=== PATIENT | male | born 1990 | race African-American/Black ===

== ENCOUNTER 2018-12-07 12:00 | Emergency (ER) | payer OTHER ==
[~2018-12-07] VITALS: Ht 175.3 cm; Wt 72.6 kg
[2018-12-07 12:22] VITALS: BP 105/69
--- NOTE | 2018-12-07 12:52 | RAD ---
Two-view chest dated 12/07/2018. No comparison available. Clinical data indication: Pain after injury. FINDINGS: PA and lateral views obtained. Heart and mediastinal contours within normal limits. Lungs are clear without focal consolidation. Vascular interstitium within normal limits. No pleural effusion or pneumothorax. IMPRESSION: No acute radiographic abnormality. Electronically signed by: Adal Reardon MD (12/07/2018 12:49 PM) [email or web address]
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
[2018-12-07] MEDS ORDERED: ONDANSETRON ODT 4 MG TAB.RAPDIS. PO ONE (13:30)
[2018-12-07] MEDS ORDERED: ONDA4TAB7 PO (13:38)
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
== END 2018-12-07 13:48 | disposition home or self-care (01) ==
LOC: ER 12:00
DX: S06.0X0A Concussion without loss of consciousness, initial encounter (principal); S20.211A Contusion of right front wall of thorax, initial encounter; S80.02XA Contusion of left knee, initial encounter; S80.01XA Contusion of right knee, initial encounter; F17.200 Nicotine dependence, unspecified, uncomplicated; Z98.890 Other specified postprocedural states; Y08.89XA Assault by other specified means, initial encounter; Y93.89 Activity, other specified; Y92.89 Other specified places as the place of occurrence of the external cause; Y99.8 Other external cause status
CPT/HCPCS: 70450; 71046; 99284; Q0162

== ENCOUNTER 2019-04-25 20:55 | Emergency (ER) | payer SELFPAY ==
[~2019-04-25] VITALS: Ht 175.3 cm; Wt 74.8 kg
[~2019-04-25 20:55] MED LIST: ONDA4TAB7 PO
[2019-04-25 21:22] VITALS: BP 123/73
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
[2019-04-26] MEDS ORDERED: HYDR-3164 PO (00:04)
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
== END 2019-04-26 00:16 | disposition home or self-care (01) ==
LOC: ER 20:55
DX: S62.316A Displaced fracture of base of fifth metacarpal bone, right hand, initial encounter for closed fracture (principal); V89.2XXA Person injured in unspecified motor-vehicle accident, traffic, initial encounter; Y93.89 Activity, other specified; Y92.89 Other specified places as the place of occurrence of the external cause; Y99.8 Other external cause status
CPT/HCPCS: 29125; 73130; 99284

== ENCOUNTER 2021-04-16 17:23 | Emergency (ER) | payer SELFPAY ==
[~2021-04-16] VITALS: Ht 172.7 cm; Wt 68.1 kg
[~2021-04-16 17:23] MED LIST changes: +HYDR-3164 PO
[2021-04-16] MEDS ORDERED: predniSONE 10 MG TABLET PO ONE (18:15)
[2021-04-16] MEDS ORDERED: ACETAMINOPHEN 500 MG TABLET PO ONE (18:15)
--- NOTE | 2021-04-16 18:30 | RAD ---
EXAMINATION: Chest radiograph. VIEWS: Single view COMPARISON: 12/10/2018 INDICATION:31 years, Male, fever. FINDINGS: Normal cardiomediastinal silhouette. No focal consolidation. No pleural effusion or pneumothorax. No acute osseous process. IMPRESSION: No acute cardiopulmonary process. Electronically signed by: Sandi Grajeda MD (04/16/2021 6:27 PM) [facility]
[2021-04-16] MEDS ORDERED: PRED50TA PO (20:39)
[2021-04-16] MEDS ORDERED: ALBU2.5V8 IH (20:39)
--- NOTE | 2021-04-16 20:39 | PHYS DOC ---
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 (TIN CHANCE WIRE DRAWING MACHINE OPERATOR) Review of Systems: Review of Systems: Constitutional: Reports body aches denies fever or chills. [] Eyes: Denies change in visual acuity. [] HENT: Reports sore throat and denies nasal congestion Respiratory: reports cough and shortness of breath. [] Cardiovascular: Denies chest pain or edema. [] GI: Denies abdominal pain, nausea, vomiting, bloody stools or diarrhea. [] : Denies dysuria. [] Musculoskeletal: Denies back pain or joint pain. [] Integument: Denies rash. [] Neurologic: Denies headache, focal weakness or sensory changes. [] Psychiatric: Denies depression or anxiety. [] (TIN CHANCE WIRE DRAWING MACHINE OPERATOR) Heart Score: C/O Chest Pain: N/A Risk Factors: Risk Factors: DM, Current or recent (<one month) smoker, HTN, HLP, family history of CAD, obesity. Risk Scores: Score 0 - 3: 2.5% MACE over next 6 weeks - Discharge Home Score 4 - 6: 20.3% MACE over next 6 weeks - Admit for Clinical Observation Score 7 - 10: 72.7% MACE over next 6 weeks - Early Invasive Strategies (TIN CHANCE WIRE DRAWING MACHINE OPERATOR) C/O Chest Pain: N/A (OSEAS MORGAN DO) Current Medications: Current Medications Medications (Trade) Dose Ordered Sig/Colten Start Time Stop Time Status Last Admin Dose Admin Acetaminophen (Tylenol) 1,000 mg 1X ONCE 04/16/21 18:15 04/16/21 18:16 DC 04/16/21 19:00 1,000 MG Prednisone (Prednisone) 50 mg 1X ONCE 04/16/21 18:15 04/16/21 18:16 DC 04/16/21 18:56 50 MG (TIN CHANCE Marco A WIRE DRAWING MACHINE OPERATOR) Allergies: Allergies: Allergies Coded Allergies Type Severity Reaction Last Updated Verified No Known Drug Allergies 12/07/18 No (TIN CHANCE Marco A WIRE DRAWING MACHINE OPERATOR) Physical Exam: PE: Constitutional: Well developed, well nourished, no acute distress, non-toxic appearance. [] HENT: Normocephalic, atraumatic, bilateral external ears normal, oropharynx moist, no oral exudates, nose normal. [] Eyes: PERRLA, EOMI, conjunctiva normal, no discharge. [] Neck: Normal range of motion, no tenderness, supple, no stridor. [] Cardiovascular:Heart rate regular rhythm, no murmur [] Lungs & Thorax: Bilateral breath sounds clear to auscultation [] Abdomen: Bowel sounds normal, soft, no tenderness, no masses, no pulsatile masses. [] Skin: Warm, dry, no erythema, no rash. [] Back: No tenderness, no CVA tenderness. [] Extremities: No tenderness, no cyanosis, no clubbing, ROM intact, no edema. [] Neurologic: Alert and oriented X 3, normal motor function, normal sensory function, no focal deficits noted. [] Psychologic: Affect normal, judgement normal, mood normal. [] (ROBSONTIN Marco A WIRE DRAWING MACHINE OPERATOR) Current Patient Data: Labs: Laboratory Tests Test 04/16/21 18:09 SARS-CoV-2 Antigen (Rapid) Negative (NEGATIVE) Vital Signs: Vital Signs Date Time Temp Pulse Resp B/P (MAP) Pulse Ox O2 Delivery O2 Flow Rate FiO2 04/16/21 17:45 101.8 73 16 139/66 (90) 97 Room Air 101.8 (TIN CHANCE Marco A WIRE DRAWING MACHINE OPERATOR) EKG: EKG: [] (TIN CHANCE WIRE DRAWING MACHINE OPERATOR) Radiology/Procedures: Radiology/Procedures: []PROCEDURE: CHEST AP ONLY EXAMINATION: Chest radiograph. VIEWS: Single view COMPARISON: 12/10/2018 INDICATION:31 years, Male, fever. FINDINGS: Normal cardiomediastinal silhouette. No focal consolidation. No pleural effusion or pneumothorax. No acute osseous process. IMPRESSION: No acute cardiopulmonary process. Electronically signed by: Ivonne Grajeda MD (04/16/2021 6:27 PM) [facility] DICTATED and SIGNED BY: IVONNE GRAJEDA MD DATE: 04/16/21 [id number] (TIN CHANCE APRN) Course & Med Decision Making: Course & Med Decision Making Pertinent Labs and Imaging studies reviewed. (See chart for details) This is a 31-year-old male patient presented to the ED today with cough, nasal congestion, body aches, shortness of breath, sore throat, symptoms began yesterday. Temperature in the ED 101.8 with a heart rate in the 70s. O2 sats 95% and above on room air. Blood pressures 130s over 60s. Patient was given Tylenol and prednisone on arrival to the ED. Negative rapid Covid test, chest x-ray interpreted by radiologist as negative for any acute findings. Patient was discharged home. Has a pending PCR Covid. Provided quarantine measures as well as supportive care measures information (TIN CHANCE APRN) Course & Med Decision Making Patients Care and treatment plan provided by ER Nurse Practitioner. I was available for consult. Patient's chart reviewed. (OSEAS MORGAN DO) Dragon Disclaimer: Dragmanuela Disclaimer: This electronic medical record was generated, in whole or in part, using a voice recognition dictation system. (TIN CHANCE APRN) Departure Departure Impression: Primary Impression: Fever Qualified Codes: R50.9 - Fever, unspecified Additional Impressions: Sore throat URI (upper respiratory infection) Qualified Codes: J06.9 - Acute upper respiratory infection, unspecified Cough Person under investigation for COVID-19 Disposition: 01 HOME / SELF CARE / HOMELESS Condition: STABLE Referrals: NO PCP (PCP) Follow up with your doctor in one week Patient Instructions: Fever, Adult, Upper Respiratory Infection, Adult, [id number] Additional Instructions: You were evaluated in the emergency room. Your chest x-ray is negative for any acute findings, your rapid Covid test is negative. You have a pending Covid PCR test. Please quarantine yourself until results come back. Push fluids, maintain good hand hygiene. Take Tylenol or Motrin as needed for fever. Wear your mask around other people. We will call you when Covid PCR test comes back Scripts Albuterol Sulfate (Proair Hfa) 8.5 Gm Hfa.aer.ad 2 PUFF IH PRN Q4-6HRS PRN for wheezing for 21 Days, #1 INHALER 0 Refills Prov: TIN CHANCE APRN 04/16/21 Prednisone (PREDNISONE) 50 Mg Tablet 1 TAB PO DAILY, #4 TAB Prov: TIN CHANCE APRN 04/16/21 TIN CHANCE APRN Apr 16, 2021 20:39 OSEAS MORGAN DO Apr 16, 2021 22:42
[2021-04-16 22:25] VITALS: BP 116/71
--- NOTE | 2021-04-17 11:12 | NUR ---
IP: Patient notified of negative COVID 19 test results. Verbalized understanding
== END 2021-04-16 21:35 | disposition home or self-care (01) ==
LOC: ER 17:23
DX: J02.9 Acute pharyngitis, unspecified (principal); Z20.822 Contact with and (suspected) exposure to COVID-19; F17.210 Nicotine dependence, cigarettes, uncomplicated
CPT/HCPCS: 71045; 87426; 99285; J7512; U0003; U0005